=== PATIENT | male | born 1975 | race Caucasian/White ===

== ENCOUNTER 2016-12-26 15:29 | Emergency (ER) | payer SELFPAY ==
[2016-12-26 15:52] VITALS: BP 127/70
--- NOTE | 2016-12-26 16:38 | UC ---
Lower Extremity/Ankle HPI - HPI Summary HPI Summary: Has Flnlnap-Wlyzx-Teeyj with foot deformities. 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 Now can't cope with it. Nails are fungal and thick, he can no longer trim them. Thick callouses around foot, pain with walking. He lost both great toenails recently, they fell off from fungal infection. Concerned about a blackened area, is it gangrene? - History of Current Complaint Chief Complaint: UCLowerExtremity Stated Complaint: BILATERAL FOOT COMPLAINT Time Seen by Provider: 12/26/16 16:23 Hx Obtained From: Patient Onset/Duration: Gradual Onset Severity Initially: Moderate Severity Currently: Severe Aggravating Factor(s): Ambulation Alleviating Factor(s): Rest, Elevation Able to Bear Weight: Yes - Risk Factors Gout Risk Factors: Male DVT Risk Factors: Negative Septic Arthritis Risk Factor: Negative - Allergies/Home Medications Allergies/Adverse Reactions: Allergies Allergy/AdvReac Type Severity Reaction Status Date / Time environmental allergies Allergy Congestion Uncoded 12/26/16 15:52 Home Medications: Home Medications NK [No Home Medications Reported] 12/26/16 [History Confirmed 12/26/16] PMH/Surg Hx/FS Hx/Imm Hx - Additional Past Medical History Additional PMH: Lngmvys-Ktmbv-Gutoc Cardiovascular History Of: Reports: Hypertension - pt refuses medication-upsets stomach - Surgical History Surgical History: Yes Surgery Procedure, Year, and Place: B/L hip resurfacing; last was Right sided 2009, left sided 2005; chest bx 2011-benign - Family History Known Family History: Positive: Unknown - Social History Occupation: Employed Full-time Lives: With Family Alcohol Use: Occasionally Substance Use Type: Marijuana Substance Use Comment - Amount & Last Used: STATES STOPPED USE OF MARIJUANA Smoking Status (MU): Light Every Day Tobacco Smoker Type: Cigarettes Amount Used/How Often: 1/4 PPD Length of Time of Smoking/Using Tobacco: 11 Years Have You Smoked in the Last Year: Yes Household Exposure Type: Cigarettes - Immunization History Most Recent Influenza Vaccination: 0450-1731 Review of Systems Constitutional: Negative Skin: Negative Eyes: Negative ENT: Negative Respiratory: Negative Cardiovascular: Negative Gastrointestinal: Negative Genitourinary: Negative Motor: Negative Neurovascular: Negative Musculoskeletal: Arthralgia - feet Neurological: Negative Psychological: Negative All Other Systems Reviewed And Are Negative: Yes Physical Exam Triage Information Reviewed: Yes Appearance: Well-Appearing, No Pain Distress, Well-Nourished Vital Signs: Initial Vital Signs Temp 99.5 F 12/26/16 15:44 Pulse 72 12/26/16 15:44 Resp 18 12/26/16 15:44 BP 127/70 12/26/16 15:44 Pulse Ox 99 12/26/16 15:44 Vital Signs Reviewed: Yes Eye Exam: Normal Neck exam: Normal Respiratory Exam: Normal Cardiovascular Exam: Normal Musculoskeletal Exam: Other - bilat foot deformities Neurological Exam: Normal Psychological Exam: Normal Skin Exam: Other - all toenails are thickened, long, fungal. There are extremely thick callouses on undersides and sides of both feet. Flaking skin. The blackened area of concern is merely a thick callous on the tip of the great toe. No redness. No foul odor. No exudate. Everything looks dry. Lower Extremity Course/Dx - Course Course Of Treatment: refer to Podiatry - Differential Dx/Diagnosis Provider Diagnoses: onychomycosis; Gvtcdmb-Paozj-Nwras syndrome Discharge - Discharge Plan Condition: Stable Disposition: HOME Patient Education Materials: Nail Avulsion (ED) Referrals: Edward Flanagan DPM [Doctor of Podiatric Medicine] - No Primary Care Phys,NOPCP [Primary Care Provider] - Additional Instructions: Call Dr. Flanagan or one of the other Podiatrists on the list. With your foot condition, it's important to have a specialist work on your feet to keep the nails and skin healthy. The blackened areas are callouses that are thickened with layers of skin. The [employer] can help to trim those down. There also may be surgical procedures that could help with the joint problems that go along with Sdhxnzc-Irwce-Zmkwe.
== END 2016-12-26 16:39 | disposition home or self-care (01) ==
LOC: UCCORT 15:29
DX: B35.1 Tinea unguium (principal); G60.0 Hereditary motor and sensory neuropathy
CPT/HCPCS: 99211; G0463

== ENCOUNTER → 2017-01-05 16:47 | Emergency (ER) | payer SELFPAY ==
[~2017-01-05 16:47] MED LIST: PPD test dose* 5 TU/0.1 ML TEST (*USE PPD ORDER SET*) ONE
== END | disposition home or self-care (01) ==
LOC: OHCORT 16:47 → UCCORT 16:47
DX: Z02.1 Encounter for pre-employment examination (principal)

== ENCOUNTER 2017-12-01 11:09 | Emergency (ER) | payer BC ==
[2017-12-01 11:43] VITALS: BP 149/94
[2017-12-01] MEDS ORDERED: Ibuprofen TAB* 800 MG PO ONE (11:59)
--- NOTE | 2017-12-01 11:59 | UC ---
Shoulder Pain HPI - HPI Summary HPI Summary: 41 y/o male presents to the urgent care c/o RT shoulder pain s/p slipping on ice and falling on top of his Rt shoulder around 1030am. Pain is sharp, 6/10 with movement and 4/10 at rest radiating to RT arm, no swelling or redness. Pt states he has PMHX of bursitis and tendonitis on RT shoulder. Also PMHX of Charcor-Margot tooth syndrome. 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 Pt has not taking anything to alleviate symptoms. Pt denies numbness and tingling over the RT arm, SOB, chest pain, abdominal pain, N/V/D - History of Current Complaint Chief Complaint: UCUpperExtremity Stated Complaint: RT SHOULDER INJURY Time Seen by Provider: 12/01/17 11:48 Hx Obtained From: Patient Onset/Duration: Sudden Onset, Lasting Hours - 2 hrs, Still Present Timing: Constant Severity Initially: Moderate Severity Currently: Moderate Location Of Pain: Is Discrete @ - RT shoulder Pain Intensity: 6 Pain Scale Used: 0-10 Numeric Character: Aching Aggravating Factor(s): Movement, Lifting, Extension, Abduction Alleviating Factor(s): Rest, Ice Associated Signs And Symptoms: Positive: Negative. Negative: Swelling, Redness , Fever, Numbness/Tingling Related History: Dominant Hand Right - Risk Factors Non-Orthopedic Risk Factor: Negative DVT Risk Factors: Negative Septic Arthritis Risk Factor: Negative - Allergies/Home Medications Allergies/Adverse Reactions: Allergies Allergy/AdvReac Type Severity Reaction Status Date / Time environmental allergies Allergy Congestion Uncoded 12/01/17 11:37 PMH/Surg Hx/FS Hx/Imm Hx - Additional Past Medical History Additional PMH: Charcott Margot tooth syndrome, Rt shoulder bursitis and tendonitis Previously Healthy: Yes Cardiovascular History: Hypertension - diet contol - Surgical History Surgical History: Yes Surgery Procedure, Year, and Place: B/L hip resurfacing; last was Right sided 2009, left sided 2005; chest bx 2011-benign. ulcer. leg surgery - Family History Known Family History: Positive: Hypertension - Social History Occupation: Employed Full-time Lives: With Family Alcohol Use: Occasionally Substance Use Type: None Substance Use Comment - Amount & Last Used: STATES STOPPED USE OF MARIJUANA Smoking Status (MU): Light Every Day Tobacco Smoker Type: Cigarettes Amount Used/How Often: 1/3 PPD Length of Time of Smoking/Using Tobacco: 11 Years Have You Smoked in the Last Year: Yes Household Exposure Type: Cigarettes - Immunization History Most Recent Influenza Vaccination: [id number] Review of Systems Constitutional: Negative Skin: Negative Eyes: Negative ENT: Negative Respiratory: Negative Cardiovascular: Negative Gastrointestinal: Negative Genitourinary: Negative Motor: Decreased ROM - Rt shoulder Musculoskeletal: Decreased ROM - Rt shoulder, Other: - RT shoulder pain s/p fall Neurological: Negative Psychological: Negative Is Patient Immunocompromised?: No All Other Systems Reviewed And Are Negative: Yes Physical Exam Triage Information Reviewed: Yes Vital Signs: Initial Vital Signs Temp 98.6 F 12/01/17 11:38 Pulse 62 12/01/17 11:38 Resp 18 12/01/17 11:38 BP 149/94 12/01/17 11:38 - Additional Comments Vital Signs Reviewed: Yes General: well developed, well nourished male sitting in the examining table w/o any apparent distress, Eyes: Positive: Conjunctiva Clear - PERRLA, EOMI, fundi grossly normal ENT: Positive: Normal ENT inspection, Hearing grossly normal, Pharynx normal, TMs normal Neck: Positive: Supple, Nontender, No Lymphadenopathy Respiratory: Positive: Chest non-tender, Lungs clear, Normal breath sounds, No respiratory distress Cardiovascular: Positive: RRR, No Murmur, Pulses Normal, Brisk Capillary Refill Abdomen Description: Positive: Nontender, No Organomegaly, Soft. Negative: CVA Tenderness (R), CVA Tenderness (L) Bowel Sounds: Positive: Present Musculoskeletal: Positive: Strength Intact, Other: - RT shoulder is without obvious asymmetry or deformity when compared to the L shoulder. No surface trauma, ecchymosis, crepitu or swelling. No bony deformity or prominence of humeral head. No erythema, warmth. tender to palpation over the AC Acromioclavicular joint. No tenderness over clavicle or scapula. NT to palpation of the bicipital groove . NT to palpation of the muscles of the sternocleidomastoid, pectoralis, tenderness over biceps/triceps, deltoid, trapezius, . Limited ROM due to pain. "empty can and drop arm test unable to perform due to pain. No axillary tenderness or lymphadenopathy. Normal sensation over the deltoid and fingers. Distal motor and neurovascular status is intact. Neurological Exam: Normal Psychological Exam: Normal Skin Exam: Normal Shoulder Course/Dx - Course Course Of Treatment: 41 y/o male presents to the urgent care c/o RT shoulder pain s/p slipping on ice and falling on top of his Rt shoulder around 1030am. Pain is sharp, 6/10 with movement and 4/10 at rest radiating to RT arm, no swelling or redness. Pt states he has PMHX of bursitis and tendonitis on RT shoulder. Also PMHX of Charcor-Margot tooth syndrome. 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 Pt has not taking anything to alleviate symptoms. Pt denies numbness and tingling over the RT arm, SOB, chest pain, abdominal pain, N/V/D. Hx obtained. RT shoulder X-ray ordered: Impression: No osseous injury observe, radiologist recommend further images if symptoms persists. Pt's Rx Naproxen PO an Prednisone PO taper dose to alleviate symptoms. Shoulder immobilized with a shoulder sling for 2-3 days. Advised to f/u with Orthopedic referral if not improvement of symptoms.Dr Kirby counsulted on Pt's symptoms. He agreed with plan of care. Pt's BP is elevated today. Pt with HX of HTN but on diet control. Pt advised to decrease salt in diet, monitor BP and f/u with PCP for further management. Pt understood and agreed with plan of care. - Differential Dx/Diagnosis Differential Diagnosis/HQI/PQRI: AC Separation, Arthritis, Dislocation, Fracture (Closed), Rotator Cuff Injury, Sprain, Strain, Tendonitis Provider Diagnoses: 1- RT acute shoulder pain s/p fall. 2- Uncontrolled HTN Discharge - Discharge Plan Condition: Stable Disposition: HOME Prescriptions: Naproxen [Naproxen 500 mg] 500 mg PO Q8H PRN #30 tab PRN Reason: Pain Patient Education Materials: Shoulder Sprain (ED), Low-Sodium Diet (ED), Shoulder Pain (ED) Forms: *Work Release Referrals: [facility] [place] [facility] REFERRAL [Outside] Nakul Burns MD [Medical Doctor] - 1 Week Additional Instructions: 1-Please take medications as directed to alleviate pain and swelling. 2-Please apply ice, keep your shoulder immobilized with the shoulder sling for 3 -4 days and then resume movement slowly 3- Please f/u with Orthopedic or your PCP in 1 week is not improvement of symptoms for further evaluation and treatment. 4-Your BP is elevated today. please decrease salt in your diet, monitor BP and if it continues to be elevated please f/u with your PCP for further management
[2017-12-01] MEDS ORDERED: Ibuprofen TAB* 400 MG PO ONE (12:01)
--- NOTE | 2017-12-01 12:23 | RAD ---
HISTORY: Right shoulder pain COMPARISONS: None VIEWS: 4, Frontal internal rotation, external rotation, outlet, and axillary views of the right shoulder FINDINGS: BONE DENSITY: Normal. BONES: There is no displaced fracture. JOINTS: There is no arthropathy. ALIGNMENT: There is no dislocation. SOFT TISSUES: Unremarkable. OTHER FINDINGS: None. IMPRESSION: NO ACUTE OSSEOUS INJURY. IF SYMPTOMS PERSIST, RECOMMEND REPEAT IMAGING.
== END 2017-12-01 13:02 | disposition home or self-care (01) ==
LOC: UCCORT 11:09
DX: M25.511 Pain in right shoulder (principal); W00.0XXA Fall on same level due to ice and snow, initial encounter; Y93.9 Activity, unspecified; Y92.9 Unspecified place or not applicable; I10 Essential (primary) hypertension; G60.0 Hereditary motor and sensory neuropathy; Z72.89 Other problems related to lifestyle; Z72.0 Tobacco use
CPT/HCPCS: 99213; A9270-GY; G0463

== ENCOUNTER 2019-08-15 11:14 | Emergency (ER) | payer SELFPAY ==
[2019-08-15 12:02] VITALS: BP 124/80
--- NOTE | 2019-08-15 12:13 | UC ---
Lower Extremity/Ankle HPI - HPI Summary HPI Summary: 43 year old male presents to urgent care due to foot pain, swelling, increased mass. Patient denies fever, chills. had h/o Charcot foot, has not had health insurance over past several years. Concerned about infection, started to pain the patient last night. - History of Current Complaint Chief Complaint: UCLowerExtremity Stated Complaint: LEFT FOOT COMPLAINT Time Seen by Provider: 08/15/19 12:11 Hx Obtained From: Patient Onset/Duration: Sudden Onset, Lasting Days Severity Currently: Mild Pain Intensity: 0 Pain Scale Used: 0-10 Numeric Aggravating Factor(s): Standing, Ambulation Alleviating Factor(s): Rest Able to Bear Weight: Yes - Allergies/Home Medications Allergies/Adverse Reactions: Allergies Allergy/AdvReac Type Severity Reaction Status Date / Time environmental allergies Allergy Congestion Uncoded 08/15/19 12:01 PMH/Surg Hx/FS Hx/Imm Hx Previously Healthy: No - Surgical History Surgical History: Yes Surgery Procedure, Year, and Place: B/L hip resurfacing; last was Right sided 2009, left sided 2005; chest bx 2011-benign. ulcer. leg surgery - BX OF NERVE - AGE 11 - Family History Known Family History: Positive: Unknown, Hypertension - Social History Alcohol Use: Occasionally Substance Use Type: Marijuana Substance Use Comment - Amount & Last Used: STATES STOPPED USE OF MARIJUANA Smoking Status (MU): Light Every Day Tobacco Smoker Type: Cigarettes Amount Used/How Often: 1/3 PPD Length of Time of Smoking/Using Tobacco: 11 Years Have You Smoked in the Last Year: Yes Household Exposure Type: Cigarettes - Immunization History Most Recent Influenza Vaccination: [id number] Review of Systems All Other Systems Reviewed And Are Negative: Yes Musculoskeletal: Positive: Arthralgia, Decreased ROM, Edema, Myalgia Is Patient Immunocompromised?: No Physical Exam - Summary Physical Exam Summary: Discussed with patient that he would need to be seen at ER based on symptoms, appearance of foot. Patient was in agreement. Declined physical exam due to no insurance and didn't want to be billed twice. right foot erythematous, swollen diffusely over midfoot with deformity noted over first MCP. + malodorous AMbulatory with limp Vital Signs: Initial Vital Signs Temp 98.8 F 08/15/19 11:58 Pulse 73 08/15/19 11:58 Resp 16 08/15/19 11:58 BP 124/80 08/15/19 11:58 Pulse Ox 99 08/15/19 11:58 Lower Extremity Course/Dx - Course Course Of Treatment: Patient sent to ER due to symptoms, need for further work-up, imaging. - Differential Dx/Diagnosis Provider Diagnosis: Infection of left foot Discharge ED - Sign-Out/Discharge Documenting (check all that apply): Patient Departure All imaging exams completed and their final reports reviewed: No Studies - Discharge Plan Condition: Fair Disposition: HOME-RECOMMEND TO ED Referrals: Marta You PA [Primary Care Provider] - Additional Instructions: DUe to symptoms, you need to be seen in the ED- please go directly there. - Billing Disposition and Condition Condition: FAIR Disposition: Home-Recommend to ED
== END 2019-08-15 12:28 | disposition home health service (06) ==
LOC: UCCORT 11:14
DX: L08.89 Other specified local infections of the skin and subcutaneous tissue (principal); F17.210 Nicotine dependence, cigarettes, uncomplicated; Z91.09 Other allergy status, other than to drugs and biological substances
CPT/HCPCS: 99212; G0463